=== PATIENT | male | born 1960 | race Caucasian/White ===

== ENCOUNTER 2022-09-19 11:49 | Observation (INO) ==
[~2022-09-19 11:49] MED LIST: Buffered Lidocaine 1% SYRIN 1 ml INTRADERM ONE; Lactated Ringers 1000 ml BAG 1,000 ML IV SCH; Naloxone 0.4 mg VIAL 0.4 mg/ml 1 ml VIAL IV PRN; Ondansetron 4 mg VIAL 2 MG/ML 2 ml VIAL IV PRN; oxyCODONE/Acetamin 5/325 mg TAB PO PRN
[2022-09-19] MEDS ORDERED: ceFAZolin 2 GM in NS PREMIX 2 GM/100 ML BAG IVPB ONE (12:38)
[2022-09-19] MEDS ORDERED: Propofol 10 MG/ML 20 ML BTL ONE ×2 (13:07→18:11)
[2022-09-19] MEDS ORDERED: Lidocaine 2% PF 5 ML VIAL ONE (13:07)
[2022-09-19] MEDS ORDERED: Midazolam 2 mg/2 ml VIAL 1 mg/ml 2 ml VIAL (2 mg) ONE (13:07)
[2022-09-19] MEDS ORDERED: Rocuronium 50 mg VIAL 10 mg/ml 5 ml VIAL (50 mg) ONE ×4 (13:07→18:10)
[2022-09-19] MEDS ORDERED: fentaNYL 100 mcg/2 ml 50 MCG/ML VIAL ONE ×6 (13:07→21:02)
[2022-09-19] MEDS ORDERED: Acetaminophen IV 1 GM/100ML 1,000 MG/100 ML BAG IV ONE (15:19)
[2022-09-19] MEDS ORDERED: Bupivacaine 0.25% w/EPI 10 ML SDV ONE (15:20)
[2022-09-19] MEDS ORDERED: Dexamethasone IV 4 MG/ML VIAL 1 ml VIAL ONE (15:55)
[2022-09-19] MEDS ORDERED: Ondansetron 4 mg VIAL 2 MG/ML 2 ml VIAL ONE (15:55)
[2022-09-19] MEDS ORDERED: ceFAZolin VIAL VIAL ONE (19:27)
[2022-09-19] MEDS ORDERED: Bacitracin OINTMENT TUBE ONE (20:21)
[2022-09-19] MEDS: fentaNYL 100 mcg/2 ml 50 MCG/ML VIAL IV PRN ×4 (20:40→21:34)
[2022-09-19] MEDS ORDERED: Morphine 2 MG/ML SYRINGE IV PRN (20:48)
[2022-09-19] MEDS ORDERED: Ondansetron 4 mg VIAL 2 MG/ML 2 ml VIAL IV PRN (20:48)
[2022-09-19] MEDS ORDERED: Lactulose 30 ml UDC PO PRN (20:48)
[2022-09-19] MEDS ORDERED: Ondansetron ODT 4 mg TAB 4 MG TAB PO PRN (20:48)
[2022-09-19] MEDS ORDERED: Magnesium Hydroxide LIQ 30 ML UDC PO PRN (20:48)
[2022-09-19] MEDS ORDERED: Lactated Ringers 1000 ml BAG 1,000 ML IV SCH (21:00)
[2022-09-19] MEDS ORDERED: oxyCODONE/Acetamin 5/325 mg TAB ONE (21:02)
[2022-09-19] MEDS ORDERED: Dextrose 50% Syringe 50 ml 25 GM/50 ML SYRINGE IV PUSH PRN (22:41)
[2022-09-19] MEDS: Magnesium Hydroxide LIQ 30 ML UDC PO SCH (23:01)
[2022-09-20] MEDS ORDERED: ceFAZolin 1 GM ADVAN 1 GM in NS 0.9% 50 ML 50 ML IVPB SCH (04:00)
[2022-09-20 06:23] LABS: Hematocrit 27.9 % (38-53); Hemoglobin 9.9 g/dL (13.2-16.3); Mean Platelet Volume 8.4 fL (7.5-11.2); Platelet Count 195 10^3/uL (150-450)
[2022-09-20 06:41] LABS: Calcium 8.5 mg/dL (8.6-10.3); Creatinine, Serum 1.18 mg/dL (0.67-1.17); Potassium 4.1 mmol/L (3.5-5.0); eGFR CKD-EPI 70.6 (>60)
[2022-09-20] MEDS: Magnesium Hydroxide LIQ 30 ML UDC PO SCH (08:29)
[2022-09-20] MEDS ORDERED: Vitamin THERAPEUTIC TAB PO SCH (09:00)
[2022-09-20 10:29] VITALS: BP 129/74
== END 2022-09-20 13:05 | disposition home or self-care (01) ==
LOC: OR 11:49 → SSU 11:49
PROVIDERS: ADMIT Physician Assistant; ATTEND Orthopaedic Surgery Sports Medicine